=== PATIENT | female | born 1995 | race American Indian/Alaskan Native ===

== ENCOUNTER 2020-07-30 09:00 | Outpatient (CLI) | payer BC ==
[2020-07-30] MEDS ORDERED: LACTATED RINGERS 1,000 ML IV ONE (09:52)
[2020-07-30 10:20] LABS: Bacteria,Urine 2+ /HPF (Negative); Bilirubin,Urine NEG (Negative); Blood,Urine NEG (Negative); Color,Urine Yellow (Yellow); Mucus,Urine FEW /HPF; Protein,Urine <15 mg/dL mg/dL (Negative); Urobilinogen,Urine < 2.0 mg/dL (<2.0)
[2020-07-30 12:02] LABS: Alanine Aminotransferase 17 units/L (7-56); Albumin 3.6 g/dL (3.9-5); Blood Urea Nitrogen 6 mg/dL (7-17); Calcium 8.9 mg/dL (8.4-10.2); Hemolysis Index 5
[2020-07-30 12:04] LABS: BUN/Creatinine Ratio 12
[2020-07-30 13:40] VITALS: BP 126/70
== END 2020-07-30 14:10 | disposition home or self-care (01) ==
LOC: APU 09:00 → TRG 09:00 → APU 09:01 → TRG 14:10
PROVIDERS: ATTEND Obstetrics & Gynecology
DX: O62.9 Abnormality of forces of labor, unspecified (principal); O26.893 Other specified pregnancy related conditions, third trimester; R19.7 Diarrhea, unspecified; Z3A.31 31 weeks gestation of pregnancy
CPT/HCPCS: 36415; 59025; 80053; 81001; 82731; 96360; J7120